=== PATIENT | female | born 1990 | race African-American/Black ===

== ENCOUNTER 2021-09-13 19:53 | Emergency (ER) | payer OTHER ==
[~2021-09-13] VITALS: Ht 162 cm; Wt 114.0 kg
[2021-09-13 20:39] LABS: BILIRUBIN,URINE NEGATIVE (NEGATIVE); CLARITY,URINE SL CLOUDY; COLOR,URINE YELLOW; GLUCOSE, URINE (UA) NEGATIVE (NEGATIVE); KETONES,URINE NEGATIVE (NEGATIVE); LEUKOCYTE ESTERASE ,URINE NEGATIVE (NEGATIVE); NITRITE,URINE NEGATIVE (NEGATIVE); PH,URINE 5.5 (5-9); PROTEIN,URINE TRACE (NEGATIVE)
[2021-09-13 20:58] LABS: BACTERIA,URINE FEW /HPF; RBC,URINE >100 /HPF; WBC,URINE 0-2 /HPF
[2021-09-13 20:59] LABS: HYALINE CASTS, URINE RARE /LPF
--- NOTE | 2021-09-13 21:01 | ED GU-Female ---
General Chief Complaint: - Reproductive Stated Complaint: BLEEDING, RIGHT SIDE PAIN 6 WEEKS Nursing Triage Note: pt reports being 6 weeks with vaginal bleeding starting approx. 1930. pt unsure of lmp. Source: patient Exam Limitations: no limitations History of Present Illness Date Seen by Provider: September 13, 2021 Time Seen by Provider: 20:40 Initial Comments Patient is a G3, P0 presents at approximately 6 weeks and 1 day based on early ultrasound with passing a small blood clot tonight while she was making dinner. She has not had anything in the vagina since her transvaginal ultrasound on , approximately 5 days ago. She is known to Dr. Correia for obstetric care. She does not recall having history of anemia. She denies any chest pain or shortness of air. She had a short-lived cramping pain in her right inguinal region at the time it went away. She not have any pain nausea fever chills dysuria diarrhea or discharge at this time. Her last vaginal intercourse was over a month ago. Allergies and Home Medications Allergies Coded Allergies: No Known Drug Allergies (Unverified , 09/13/21) Patient Home Medication List Home Medication List Reviewed: Yes Review of Systems Review of Systems Constitutional: No chills, No diaphoresis EENTM: No ear discharge, No ear pain Respiratory: No cough, No short of breath Cardiovascular: No chest pain, No edema Gastrointestinal: No abdominal pain, No constipation, No diarrhea, No nausea, No vomiting Genitourinary: denies discharge, denies dysuria Musculoskeletal: No back pain, No joint pain All Other Systemes Reviewed Negative Unless Noted: Yes Past Aaaobjg-Ubyiwv-Pzuhfr Hx Patient Social History Tobacco Use?: Yes Substance use?: No Alcohol Use?: No Pt feels they are or have been: No Past Medical History Surgery/Hospitalization HX: d&c Physical Exam Vital Signs Vital Signs - First Documented 09/13/21 20:28 Temp 36.7 Pulse 98 Resp 18 B/P (MAP) 146/74 (98) Pulse Ox 100 O2 Delivery Room Air Capillary Refill : Less Than 3 Seconds Height, Weight, BMI Height: '" Weight: lbs. oz. kg; 43.00 BMI Method: General Appearance: WD/WN, no apparent distress HEENT: PERRL/EOMI, pharynx normal Neck: full range of motion, supple, normal inspection Cardiovascular: normal peripheral pulses, regular rate, rhythm Respiratory: no respiratory distress, no accessory muscle use Gastrointestinal: normal bowel sounds, non tender, soft Neurologic/Psychiatric: alert, normal mood/affect Progress/Results/Core Measures Suspected Sepsis SIRS Temperature: Pulse: 98 Respiratory Rate: 18 Laboratory Tests 09/13/21 21:00: White Blood Count 13.4H Blood Pressure 146 /74 Mean: 98 Laboratory Tests 09/13/21 21:00: Creatinine 0.90, Platelet Count 395 Results/Orders Lab Results Laboratory Tests Test 09/13/21 20:30 09/13/21 21:00 Range/Units Urine Color YELLOW Urine Clarity SL CLOUDY Urine pH 5.5 5-9 Urine Specific [place] >=1.030 1.016-1.022 Urine Protein TRACE H NEGATIVE Urine Glucose (UA) NEGATIVE NEGATIVE Urine Ketones NEGATIVE NEGATIVE Urine Nitrite NEGATIVE NEGATIVE Urine Bilirubin NEGATIVE NEGATIVE Urine Urobilinogen 0.2 < = 1.0 MG/DL Urine Leukocyte Esterase NEGATIVE NEGATIVE Urine RBC (Auto) 3+ H NEGATIVE Urine RBC >100 H /HPF Urine WBC 0-2 /HPF Urine Squamous Epithelial Cells 2-5 /HPF Urine Crystals NONE /LPF Urine Bacteria FEW H /HPF Urine Casts PRESENT /LPF Urine Hyaline Casts RARE /LPF Urine Mucus MODERATE H /LPF Urine Culture Indicated YES White Blood Count 13.4 H 4.3-11.0 10^3/uL Red Blood Count 4.25 3.80-5.11 10^6/uL Hemoglobin 8.2 L 11.5-16.0 g/dL Hematocrit 29 L 35-52 % Mean Corpuscular Volume 68 L 80-99 fL Mean Corpuscular Hemoglobin 19 L 25-34 pg Mean Corpuscular Hemoglobin Concent 28 L 32-36 g/dL Red Cell Distribution Width 20.0 H 10.0-14.5 % Platelet Count 395 130-400 10^3/uL Mean Platelet Volume 9.4 9.0-12.2 fL Immature Granulocyte % (Auto) 1 % Neutrophils (%) (Auto) 68 42-75 % Lymphocytes (%) (Auto) 22 12-44 % Monocytes (%) (Auto) 7 0-12 % Eosinophils (%) (Auto) 2 0-10 % Basophils (%) (Auto) 0 0-10 % Neutrophils # (Auto) 9.2 H 1.8-7.8 10^3/uL Lymphocytes # (Auto) 3.0 1.0-4.0 10^3/uL Monocytes # (Auto) 0.9 0.0-1.0 10^3/uL Eosinophils # (Auto) 0.2 0.0-0.3 10^3/uL Basophils # (Auto) 0.1 0.0-0.1 10^3/uL Immature Granulocyte # (Auto) 0.1 0.0-0.1 10^3/uL Sodium Level 136 135-145 MMOL/L Potassium Level 4.0 3.6-5.0 MMOL/L Chloride Level 103 98-107 MMOL/L Carbon Dioxide Level 20 L 21-32 MMOL/L Anion Gap 13 5-14 MMOL/L Blood Urea Nitrogen 9 7-18 MG/DL Creatinine 0.90 0.60-1.30 MG/DL Estimat Glomerular Filtration Rate 88 BUN/Creatinine Ratio 10 Glucose Level 200 H 70-105 MG/DL Calcium Level 9.1 8.5-10.1 MG/DL My Orders Orders - JOSE JAUREGUI Ua Culture If Indicated (09/13/21 20:25) Urine Bedside (09/13/21 20:25) Cbc With Automated Diff (09/13/21 20:55) Hcg,Quantitative (09/13/21 20:55) Abo Rh Type (09/13/21 20:55) Basic Metabolic Panel (09/13/21 20:55) Urine Culture (09/13/21 20:30) Iron Tibc %Sat & Ferritin (09/13/21 21:16) Vital Signs/I&O 09/13/21 20:28 Temp 36.7 Pulse 98 Resp 18 B/P (MAP) 146/74 (98) Pulse Ox 100 O2 Delivery Room Air Capillary Refill : Less Than 3 Seconds Blood Pressure Mean: 98 Progress Note : Time: 20:58 Progress Note Plan to check blood counts, BMP, quantitative, urinalysis. The bedside was positive. We will have her follow-up with Dr. Correia later in the week for repeat quantitative on or Sunday. She is already had an ultrasound which would have ruled out an ectopic . There was no mention of whether she had a low-lying placenta but the clot in the picture she took looks rather dark blackish and old. Likely this is from a subchorionic hemorrhage although miscarriage is not ruled out at this time. 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 We also gave her good return precautions. She has not been here before so we are completing an ABO Rh. Departure Impression Primary Impression: Vaginal bleeding affecting early Additional Impression: Threatened miscarriage in early Disposition: 01 HOME, SELF-CARE Condition: Stable Departure-Patient Inst. Decision time for Depature: 21:31 Referrals: EULALIO CORREIA MD NO,LOCAL PHYSICIAN (PCP) Primary Care Physician Patient Instructions: Bleeding in Early (DC), Threatened Miscarriage Add. Discharge Instructions: Your blood counts looked okay today. We will need to repeat the quantitative hCG or Sunday through your plant utilities engineer's office. This can be compared to today's level and a determination can be made based on these numbers. Call your doctor and asked them to set up this lab test and a follow-up appointment shortly afterwards to discuss results. Promptly return to the ER if you experience chest pain, shortness of air, passing blood clots consistently larger than the chickens egg or are going through large menstrual pad more than once an hour. We did collect some iron studies that will not be resulted out for a couple days. We will follow-up with Dr. Correia she can look for the results. All discharge instructions reviewed with patient and/or family. Voiced understanding. Copy Copies To 1: EULALIO CORREIA MD, TITUS J September 13, 2021 21:01
[2021-09-13 21:12] LABS: BASOPHILS # (AUTO) 0.1 10^3/uL (0.0-0.1); BASOPHILS % (AUTO) 0 % (0-10); EOSINOPHILS # (AUTO) 0.2 10^3/uL (0.0-0.3); EOSINOPHILS % (AUTO) 2 % (0-10); HEMATOCRIT 29 % (35-52); HEMOGLOBIN 8.2 g/dL (11.5-16.0); LYMPHOCYTES % (AUTO) 22 % (12-44); MEAN CORPUSCULAR HEMOGLOBIN 19 pg (25-34); MEAN CORPUSCULAR HGB CONC 28 g/dL (32-36); MEAN CORPUSCULAR VOLUME 68 fL (80-99); MEAN PLATELET VOLUME 9.4 fL (9.0-12.2); MONOCYTES # (AUTO) 0.9 10^3/uL (0.0-1.0); MONOCYTES % (AUTO) 7 % (0-12); NEUTROPHILS # (AUTO) 9.2 10^3/uL (1.8-7.8); NEUTROPHILS % (AUTO) 68 % (42-75); PLATELET COUNT 395 10^3/uL (130-400); WHITE BLOOD COUNT 13.4 10^3/uL (4.3-11.0)
[2021-09-13 21:27] LABS: CALCIUM 9.1 MG/DL (8.5-10.1); CREATININE SERUM 0.9 MG/DL (0.60-1.30)
[2021-09-13 21:52] VITALS: BP 136/79
== END 2021-09-13 21:53 | disposition home or self-care (01) ==
LOC: ER 20:00
DX: O20.0 Threatened abortion (principal); Z3A.01 Less than 8 weeks gestation of pregnancy
CPT/HCPCS: 36415; 80048; 81000; 82728; 83540; 83550; 84702; 84703; 85025; 86900; 86901; 87088; 99282

== ENCOUNTER → 2021-09-15 | Outpatient (CLI) | payer OTHER | LOC: LAB 14:02 | PROVIDERS: ATTEND Family Medicine | DX: O20.9 Hemorrhage in early pregnancy, unspecified (principal); Z3A.00 Weeks of gestation of pregnancy not specified | CPT/HCPCS: 84702 ==